=== PATIENT | male | born 1985 | race African-American/Black ===

== ENCOUNTER 2016-07-25 09:54 | Emergency (ER) | payer OTHER ==
[2016-07-25 10:09] VITALS: BP 144/76; PULSE 75; TEMP 97.8; BMI 25.3
--- NOTE | 2016-07-25 12:00 | PDOC ---
History of Present Illness - General Chief Complaint: Head/Neck problem Stated Complaint: HEADACHE Time Seen by Provider: 07/25/16 10:15 History Source: Patient Exam Limitations: No Limitations - History of Present Illness Initial Comments: 07/25/16 12:14 Chief complaint tension back of head and left posterior neck History of present illness: Patient is a 31-year-old male with a history of LVF patient is here today complaining of a tension back of head and left posterior neck intermittent for one week. Patient reports that it was not actually a pain just at tension sensation this pain does not wake him up from any sleep. Patient was noted in exam room playing a video game on his phone with his head tilted downward. Patient admits that he does this often. Patient denies any dizziness, any shortness of breath or any chest pain. 07/25/16 12:17 07/25/16 12:37 Timing/Duration: 1 week, intermittent Severity: mild Associated Symptoms: reports: other (tension sensation back on head, left lateral posterior neck ). denies: fever/chills, headaches, loss of appetite, malaise, nausea/vomiting, seizure, shortness of breath, syncope, weakness Past History - Past Medical History Allergies/Adverse Reactions: Allergies Allergy/AdvReac Type Severity Reaction Status Date / Time No Known Allergies Allergy Verified 07/25/16 10:05 Home Medications: Ambulatory Orders Metoprolol Succinate [Toprol XL -] 25 mg PO BID 04/21/16 Cyclobenzaprine HCl [Flexeril -] 10 mg PO Q8H PRN #21 tablet 07/25/16 Anemia: No Asthma: No Cancer: No Cardiac Disorders: Yes (Mild cardiomegaly) CVA: No COPD: No CHF: No Dementia: No Diabetes: No GI Disorders: No Disorders: No HTN: No Hypercholesterolemia: No Liver Disease: No Psychiatric Problems: Yes (ANXIETY) Seizures: No Thyroid Disease: No - Surgical History Abdominal Surgery: Yes (Left abdominal hernia repair) Orthopedic Surgery: Yes (ACL RT KNEE 2003) - Psycho/Social/Smoking Cessation Hx Anxiety: Yes Suicidal Ideation: No Smoking Status: No Smoking History: Never smoked Number of Cigarettes Smoked Daily: 0 Hx Alcohol Use: No Drug/Substance Use Hx: No Substance Use Type: None Hx Substance Use Treatment: No Review of Systems - Review of Systems Able to Perform ROS?: Yes Constitutional: No: Symptoms Reported HEENTM: No: Symptoms Reported Respiratory: No: Symptoms reported Cardiac (ROS): No: Symptoms Reported ABD/GI: No: Symptoms Reported : No: Symptoms Reported Musculoskeletal: Yes: Neck Pain (left posterior neck) Neurological: Yes: Other (tension sensation lower occipital ). No: Headache, Numbness, Paresthesia, Tingling, Weakness, Unsteady Gait, Ataxia, Dizziness *Physical Exam - Vital Signs Last Vital Signs Temp Pulse Resp BP Pulse Ox 97.8 F 75 19 144/76 99 07/25/16 10:05 07/25/16 10:05 07/25/16 10:05 07/25/16 10:05 07/25/16 10:05 - Physical Exam General Appearance: Yes: Appropriately Dressed HEENT: positive: EOMI, ANURADHA, Normal ENT Inspection Neck: positive: Tender lateral (posterior left neck ). negative: Tender, Lymphadenopathy (R), Lymphadenopathy (L), Rigidity, Tender midline Respiratory/Chest: positive: Lungs Clear, Normal Breath Sounds. negative: Chest Tender, Respiratory Distress Cardiovascular: positive: Regular Rhythm, Regular Rate, S1, S2 Neurologic: positive: hat cutter II-XII NML intact, Alert, Normal Response, Responsive , Finger to Nose. negative: Numbness, Sensory Deficit Heart Score/ECG Review - ECG Impressions Comment:: 07/25/16 12:[address] Sutton ED Treatment Course - LABORATORY CBC & Chemistry Diagram: 07/25/16 12:30 07/25/16 12:30 Medical Decision Making - Medical Decision Making 07/25/16 12:37 07/25/16 12:38 Patient is a 31-year-old male with a history of LVF and HCM patient is here today complaining of a tension back of head and left posterior neck intermittent for one week. Patient reports that it was not actually a pain just at tension sensation this pain does not wake him up from any sleep. Patient was noted in exam room playing a video game on his phone with his head tilted downward. Patient admits that he does this often. Patient denies any dizziness, any shortness of breath or any chest pain. Also reports that he's had low potassium levels in the past would like to have this checked has been tired lately. tension like headache, left posterior neck pain PLAN: EKG reviewed by Dr. Sutton unchanged from 01/26 ibuprofen 600 mg po now flexeril 10 mg po now than every 8 hrs prn muscle spasm CBC with diff BMP 07/25/16 13:24 Laboratory Tests 07/25/16 07/25/16 12:30 12:30 WBC 4.4 D RBC 5.72 H Hgb 16.0 Hct 47.1 MCV 82.3 MCHC 33.9 RDW 13.7 Plt Count 181 MPV 8.9 Neutrophils % 56.8 Lymphocytes % 35.8 Monocytes % 6.5 Eosinophils % 0.4 Basophils % 0.5 Sodium 140 Potassium 4.4 Chloride 102 Carbon Dioxide 30 Anion Gap 8 BUN 8 D Creatinine 0.9 Random Glucose 83 Calcium 9.5 *DC/Admit/Observation/Transfer Diagnosis at time of Disposition: Tension headache Strain of neck Qualifiers: Encounter type: initial encounter Qualified Code(s): S16.1XXA - Strain of muscle, fascia and tendon at neck level, initial encounter - Discharge Dispostion Disposition: HOME Condition at time of disposition: Stable - Patient Instructions Additional Instructions: Follow-up with your primary care provider within the next few days Avoid looking down and playing video games on your phone hold it out in front of you dressing on something Return to emergency room if symptoms worsen or new symptoms develop 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
[2016-07-25] MEDS ORDERED: CYCLOBENZAPRINE HCL 10 MG TABLET (FP) PO ONE (12:36)
[2016-07-25] MEDS ORDERED: IBUPROFEN 600 MG TABLET (FP) PO ONE ×2 (12:37→12:42)
[2016-07-25] MEDS ORDERED: CYCLOBENZAPRINE HCL 10 MG TABLET (FP) ONE (12:42)
[2016-07-25 12:55] LABS: BASOPHIL 0.5 % (0-2.0); EOSINOPHIL 0.4 % (0-4.5); MCH 27.9 pg (25.7-33.7); MCHC 33.9 g/dl (32.0-35.9); MEAN CELL VOLUME 82.3 fl (80-96); MEAN PLT VOLUME 8.9 fl (7.5-11.1); NEUTROPHILS 56.8 % (42.8-82.8); PLATELET COUNT 181 K/MM3 (134-434); RDW 13.7 % (11.9-15.9); WHITE BLOOD COUNT 4.4 K/mm3 (4.0-10.0)
[2016-07-25 13:19] LABS: CALCIUM 9.5 mg/dL (8.5-10.1); CREATININE 0.9 mg/dL (0.7-1.3)
== END 2016-07-25 13:38 | disposition home or self-care (01) ==
LOC: JERFT 09:54
DX: G44.209 Tension-type headache, unspecified, not intractable (principal); S16.1XXA Strain of muscle, fascia and tendon at neck level, initial encounter; X50.1XXA Overexertion from prolonged static or awkward postures, initial encounter; Y93.C2 Activity, hand held interactive electronic device; Y92.89 Other specified places as the place of occurrence of the external cause
CPT/HCPCS: 36415; 80048; 85025; 99281-25

== ENCOUNTER 2016-11-07 18:43 | Emergency (ER) | payer OTHER ==
[2016-11-07 18:48] VITALS: BP 122/80; PULSE 80; TEMP 98.1; BMI 25.6
--- NOTE | 2016-11-07 18:57 | PDOC ---
History of Present Illness - General Chief Complaint: Cold Symptoms Stated Complaint: COUGH STREP THROAT Time Seen by Provider: 11/07/16 18:53 History Source: Patient Exam Limitations: No Limitations - History of Present Illness Initial Comments: 11/07/16 18:54 Patient is a 31-year-old male history of cardiomyopathy presents emergency department with sore throat, cough, diagnosed with strep throat. Allergies: No known allergies Medications: Metoprolol Family History: Non-contributory Social History: Denies smoking, alcohol use, or IVDU Review of Systems GENERAL/CONSTITUTIONAL: No fever or chills. No weakness. No weight change. HEAD, EYES, EARS, NOSE AND THROAT: No change in vision. No ear pain or discharge. Sore throat CARDIOVASCULAR: No chest pain or shortness of breath. RESPIRATORY: Nonproductive cough, wheezing, or hemoptysis. GASTROINTESTINAL: No nausea, vomiting, diarrhea or constipation. No rectal bleeding. GENITOURINARY: No dysuria, frequency, or change in urination. MUSCULOSKELETAL: No joint or muscle swelling or pain. No neck or back pain. SKIN AND BREASTS: No rash or easy bruising. NEUROLOGIC: No headache, vertigo, loss of consciousness, or loss of sensation. PSYCHIATRIC: No depression or anxiety. ENDOCRINE: No increased thirst. No abnormal weight change. HEMATOLOGIC/LYMPHATIC: No anemia, easy bleeding, or history of blood clots. ALLERGIC/IMMUNOLOGIC: No hives or skin allergy. No latex allergy. Physical Exam: GENERAL: The patient is awake, alert, and fully oriented, in no acute distress. EYES: Pupils equal, round and reactive to light, extraocular movements intact, sclera anicteric, conjunctiva clear. ENT: Ears normal, nares patent, oropharynx erythematous without exudates. Moist mucous membranes. No uvula deviation NECK: Normal range of motion, supple without lymphadenopathy, JVD, or masses. LUNGS: Breath sounds equal, clear to auscultation bilaterally. No wheezes, and no crackles. HEART: Regular rate and rhythm, normal S1 and S2 without murmur, rub or gallop. ABDOMEN: Soft, nontender, normoactive bowel sounds. No guarding, no rebound. No masses. No bruising or abrasions MUSCULOSKELETAL: Normal range of motion, no edema. No clubbing or cyanosis. No cords, erythema, or tenderness. No CVA Tenderness with fist palpation. NEUROLOGICAL: Cranial nerves II through XII grossly intact. Normal speech, normal gait. SKIN: Warm, Dry, normal turgor, no rashes or lesions noted. 11/07/16 19:19 Past History - Past Medical History Allergies/Adverse Reactions: Allergies Allergy/AdvReac Type Severity Reaction Status Date / Time No Known Allergies Allergy Verified 11/07/16 18:44 Home Medications: Ambulatory Orders Metoprolol Succinate [Toprol XL -] 25 mg PO BID 04/21/16 Amoxicillin - [Amoxicillin 500mg Capsule -] 500 mg PO BID #20 capsule 11/07/16 Anemia: No Asthma: No Cancer: No Cardiac Disorders: Yes (Mild cardiomegaly) CVA: No COPD: No CHF: No Dementia: No Diabetes: No GI Disorders: No Disorders: No HTN: No Hypercholesterolemia: No Liver Disease: No Psychiatric Problems: Yes (ANXIETY) Seizures: No Thyroid Disease: No - Surgical History Abdominal Surgery: Yes (Left abdominal hernia repair) Orthopedic Surgery: Yes (ACL RT KNEE 2002) - Psycho/Social/Smoking Cessation Hx Anxiety: Yes Suicidal Ideation: No Smoking Status: No Smoking History: Never smoked Have you smoked in the past 12 months: No Number of Cigarettes Smoked Daily: 0 Information on smoking cessation initiated: No Hx Alcohol Use: No Drug/Substance Use Hx: No Substance Use Type: None Hx Substance Use Treatment: No *Physical Exam - Vital Signs Last Vital Signs Temp Pulse Resp BP Pulse Ox 98.1 F 80 18 122/80 100 11/07/16 18:45 11/07/16 18:45 11/07/16 18:45 11/07/16 18:45 11/07/16 18:45 Medical Decision Making - Medical Decision Making 11/07/16 19:21 A/P: Patient with clinical signs of strep pharyngitis and exposure to. Will DC patient on amoxicillin, Motrin for pain. Change toothbrush in 3 days, follow up as needed. 11/07/16 19:27 *DC/Admit/Observation/Transfer Diagnosis at time of Disposition: Exposure to strep throat - Discharge Dispostion Admit: No - Prescriptions Prescriptions: Amoxicillin - [Amoxicillin 500mg Capsule -] 500 mg PO BID #20 capsule - Referrals Referrals: STAFF,NOT ON [Primary Care Provider] - - Patient Instructions Printed Discharge Instructions: DI for Strep Throat Additional Instructions: 1. Increase fluid. 2. Pedialyte or Gatorade. 3. Please change toothbrush within 3 days of starting antibiotics. 4. Warm saltwater gargles. 5. Please follow up with PMD in 3 days if symptoms not resolving. 6. Please return to the ER unable to drink or eat, increased fever or other concerns
== END 2016-11-07 19:29 | disposition home or self-care (01) ==
LOC: JERFT 18:43
DX: J02.0 Streptococcal pharyngitis (principal)
CPT/HCPCS: 99281-25

== ENCOUNTER 2016-11-19 17:38 | Emergency (ER) | payer OTHER ==
[2016-11-19 17:46] VITALS: BP 123/81; PULSE 64; TEMP 98; BMI 25.6
[2016-11-19] MEDS ORDERED: guaiFENesin/CODEINE 10 ML UNIT-DOSE CUPS PO ONE (19:21)
--- NOTE | 2016-11-19 19:24 | PDOC ---
History of Present Illness - General Chief Complaint: Cold Symptoms Stated Complaint: COUGH Time Seen by Provider: 11/19/16 18:57 History Source: Patient Exam Limitations: No Limitations - History of Present Illness Initial Comments: 11/19/16 19:20 31 y/o male presents to the ED with c/o dry hacking cough for the past 2 days without fever, difficulty breathing, sore throat , or headache. Pt states had strep throat last week and was treated with resolution of symptoms. Pt denies chest pain , smoking hx, recent travel, nasal congestion, or seasonal allergies Timing/Duration: reports: other (2 days) Severity: reports: mild Possible Cause: Yes: frequent episodes Modifying Factors: improves with: coughing Associated Symptoms: reports: cough Past History - Past Medical History Allergies/Adverse Reactions: Allergies Allergy/AdvReac Type Severity Reaction Status Date / Time No Known Allergies Allergy Verified 11/19/16 17:44 Home Medications: Ambulatory Orders Metoprolol Succinate [Toprol XL -] 25 mg PO BID 04/21/16 Guaifenesin AC [Robitussin AC] 10 ml PO HS PRN #70 ml MDD 10 11/19/16 Anemia: No Asthma: No Cancer: No Cardiac Disorders: Yes (Mild cardiomegaly) CVA: No COPD: No CHF: No Dementia: No Diabetes: No GI Disorders: No Disorders: No HTN: No Hypercholesterolemia: No Liver Disease: No Psychiatric Problems: Yes (ANXIETY) Seizures: No Thyroid Disease: No - Surgical History Abdominal Surgery: Yes (Left abdominal hernia repair) Orthopedic Surgery: Yes (ACL RT KNEE 2002) - Psycho/Social/Smoking Cessation Hx Anxiety: Yes Suicidal Ideation: No Smoking Status: No Smoking History: Never smoked Have you smoked in the past 12 months: No Number of Cigarettes Smoked Daily: 0 Hx Alcohol Use: No Drug/Substance Use Hx: No Substance Use Type: None Hx Substance Use Treatment: No Patient Lives Alone: No Lives with/in: spouse/SO Review of Systems - Review of Systems Able to Perform ROS?: Yes Constitutional: No: Symptoms Reported HEENTM: No: Symptoms Reported Respiratory: Yes: Cough. No: Shortness of Breath, Wheezing Cardiac (ROS): No: Symptoms Reported ABD/GI: No: Symptoms Reported : No: Symptoms Reported Musculoskeletal: No: Symptoms Reported Integumentary: No: Symptoms Reported Endocrine: No: Symptoms Reported Hematologic/Lymphatic: No: Symptoms Reported *Physical Exam - Vital Signs Last Vital Signs Temp Pulse Resp BP Pulse Ox 98.0 F 64 18 123/81 99 11/19/16 17:43 11/19/16 17:43 11/19/16 17:43 11/19/16 17:43 11/19/16 17:43 - Physical Exam General Appearance: Yes: Nourished, Appropriately Dressed. No: Apparent Distress HEENT: positive: TMs Normal, Pharynx Normal. negative: Pale Conjunctivae Neck: positive: Supple Respiratory/Chest: positive: Lungs Clear, Normal Breath Sounds. negative: Respiratory Distress, Accessory Muscle Use Cardiovascular: positive: Regular Rhythm, Regular Rate. negative: Murmur Gastrointestinal/Abdominal: positive: Soft. negative: Tenderness Integumentary: positive: Normal Color, Warm, Moist Neurologic: positive: Motor Strength 5/5 (ambulatory) Medical Decision Making - Medical Decision Making 11/19/16 19:22 Patient with dry hacking cough for the past 2 days without fever, chills or throat or shortness of breath. Patient exam had no acute findings. Patient we order for Robitussin here in the ER and discharged home with the same. *DC/Admit/Observation/Transfer Diagnosis at time of Disposition: Cough - Discharge Dispostion Disposition: HOME Condition at time of disposition: Good - Prescriptions Prescriptions: Guaifenesin AC [Robitussin AC] 10 ml PO HS PRN #70 ml MDD 10 PRN Reason: Cough - Patient Instructions Printed Discharge Instructions: DI for Cough -- Adult Additional Instructions: Please take Robitussin with codeine at night and do not operate any heavy machinery while taking this. Please drink plenty of fluids and use throat lozenges during the day. Please follow up with your PCP as needed otherwise return to ED if symptoms worsen.
[2016-11-19] MEDS ORDERED: guaiFENesin/CODEINE 5 ML UNIT-DOSE CUPS PO ONE ×2 (19:26→19:30)
== END 2016-11-19 19:33 | disposition home or self-care (01) ==
LOC: JERFT 17:38
DX: R05 Cough (principal); F41.9 Anxiety disorder, unspecified; I51.7 Cardiomegaly
CPT/HCPCS: 99281-25

== ENCOUNTER 2017-01-30 20:39 | Emergency (ER) | payer OTHER ==
[2017-01-30 20:46] VITALS: BP 146/86; PULSE 76; TEMP 98.2; BMI 25.9
[2017-01-30 21:34] LABS: URINE APPEARANCE SLCLOUDY; URINE BILIRUBIN NEGATIVE (NEGATIVE); URINE BLOOD NEGATIVE (NEGATIVE); URINE COLOR AMBER; URINE GLUCOSE (UA) NEGATIVE (NEGATIVE); URINE KETONE 1+ (NEGATIVE); URINE LEUK ESTERASE NEGATIVE (NEGATIVE); URINE NITRITE NEGATIVE (NEGATIVE); URINE UROBILINOGEN NEGATIVE mg/dL (0.2-1.0)
[2017-01-30 21:45] LABS: URINE PROTEIN 1+ (NEGATIVE)
[2017-01-30 21:46] LABS: URINE BACTERIA RARE /hpf (NONE SEEN); URINE HYALINE CAST 2 /lpf; URINE MUCUS MANY; URINE RBC 4 /hpf (0-3); URINE WBC 1 /hpf (3-5)
[2017-01-30] MEDS ORDERED: SODIUM CHLORIDE 1,000 ML IV STA ×2 (22:02→23:18)
[2017-01-30 22:36] LABS: BASOPHIL 0.5 % (0-2.0); EOSINOPHIL 0.7 % (0-4.5); MCH 27.6 pg (25.7-33.7); MCHC 34.2 g/dl (32.0-35.9); MEAN CELL VOLUME 80.8 fl (80-96); MEAN PLT VOLUME 9.3 fl (7.5-11.1); NEUTROPHILS 52.4 % (42.8-82.8); PLATELET COUNT 225 K/MM3 (134-434); RDW 14.1 % (11.9-15.9); WHITE BLOOD COUNT 7.6 K/mm3 (4.0-10.0)
--- NOTE | 2017-01-30 22:53 | PDOC ---
History of Present Illness - General Chief Complaint: Pain Stated Complaint: STOMACH PAIN Time Seen by Provider: 01/30/17 21:45 History Source: Patient Exam Limitations: No Limitations - History of Present Illness Initial Comments: 01/30/17 22:48 31yo Male patient w/ PmHx: HTN, Left Ventricular Hypertrophy presents to ED c/o chills, malaise, dehydration, and stomach pain. Patient states symptoms began this past Tuesday and has not gotten any better. He denies fever, n/v/d, constipation, back pain, diff breathing, CP, rash, or any other complaints. Associated decrease in appetite, throat pain. Timing/Duration: constant Severity: mild Modifying Factors: worse with: cold therapy, eating, immobilization, medication , movement, rest, other Associated Symptoms: denies: denies symptoms, chest pain, cough, diaphoresis, fever/chills, headaches, loss of appetite, malaise, nausea/vomiting, rash, seizure, shortness of breath, syncope, weakness, other Past History - Travel Traveled outside of the country in the last 30 days: No Close contact w/someone who was outside of country & ill: No - Past Medical History Allergies/Adverse Reactions: Allergies Allergy/AdvReac Type Severity Reaction Status Date / Time No Known Allergies Allergy Verified 01/30/17 20:45 Home Medications: Ambulatory Orders Verapamil HCl [Verapamil ER] 120 mg PO DAILY 01/30/17 Anemia: No Asthma: No Cancer: No Cardiac Disorders: Yes (Mild cardiomegaly) CVA: No COPD: No CHF: No Dementia: No Diabetes: No GI Disorders: No Disorders: No HTN: No Hypercholesterolemia: No Liver Disease: No Psychiatric Problems: Yes (ANXIETY) Seizures: No Thyroid Disease: No - Surgical History Abdominal Surgery: Yes (Left abdominal hernia repair) Orthopedic Surgery: Yes (ACL RT KNEE 2002) - Psycho/Social/Smoking Cessation Hx Anxiety: Yes Suicidal Ideation: No Smoking Status: No Smoking History: Never smoked Have you smoked in the past 12 months: No Number of Cigarettes Smoked Daily: 0 Hx Alcohol Use: No Drug/Substance Use Hx: No Substance Use Type: None Hx Substance Use Treatment: No Review of Systems - Review of Systems Able to Perform ROS?: Yes Is the patient limited Serbian proficient: No Constitutional: Yes: Chills, Malaise. No: Fever HEENTM: Yes: Throat Pain. No: Difficulty Swallowing, Mouth Swelling Respiratory: No: Cough, Stridor, Wheezing Cardiac (ROS): No: Chest Pain ABD/GI: Yes: Abdominal cramping. No: Constipated, Diarrhea, Nausea, Poor Appetite, Poor Fluid Intake, Vomiting : No: Burning, Dysuria, Hematuria Musculoskeletal: No: Back Pain Integumentary: No: Bruising, Erythema, Pruritus, Rash, Sweating Neurological: No: Headache, Seizure, Tingling, Dizziness All Other Systems: Reviewed and Negative *Physical Exam - Vital Signs Last Vital Signs Temp Pulse Resp BP Pulse Ox 98.2 F 76 18 146/86 98 01/30/17 20:45 01/30/17 20:45 01/30/17 20:45 01/30/17 20:45 01/30/17 20:45 - Physical Exam General Appearance: Yes: Nourished, Appropriately Dressed. No: Apparent Distress, Mild Distress, Moderate Distress, Severe Distress HEENT: positive: EOMI, ANURADHA, Normal ENT Inspection, Normal Voice, Symmetrical, TMs Normal, Pharynx Normal. negative: Pharyngeal Erythema, Tonsillar Exudate, Tonsillar Erythema, Nasal Congestion, Rhinorrhea, TM Bulging, TM Dull, TM Erythema Neck: positive: Trachea midline, Normal Thyroid, Supple. negative: Stridor, Lymphadenopathy (R), Lymphadenopathy (L), Rigidity, Tender lateral, Tender midline Respiratory/Chest: positive: Lungs Clear, Normal Breath Sounds. negative: Chest Tender, Respiratory Distress, Accessory Muscle Use, Labored Respiration, Rapid RR, Crackles, Rales, Stridor, Wheezing Cardiovascular: positive: Regular Rhythm, Regular Rate Gastrointestinal/Abdominal: positive: Normal Bowel Sounds, Soft. negative: Distended, Guarding, Rebound, Tenderness Musculoskeletal: positive: Normal Inspection. negative: CVA Tenderness, Decreased Range of Motion Extremity: positive: Normal Capillary Refill, Normal Inspection, Normal Range of Motion. negative: Pedal Edema, Swelling, Calf Tenderness, Erythema, Inflammation Integumentary: positive: Normal Color, Dry, Warm Neurologic: positive: assembly riveter II-XII NML intact, Fully Oriented, Alert, Normal Mood/ Affect, Normal Response, Motor Strength 5/5 ED Treatment Course - LABORATORY CBC & Chemistry Diagram: 01/30/17 22:22 01/30/17 22:22 - ADDITIONAL ORDERS Additional order review: Laboratory Results 01/30/17 21:20 Urine Color Muriel Urine Appearance Slcloudy Urine pH 5.0 Ur Specific [place] >= 1.030 H Urine Protein 1+ H Urine Glucose (UA) Negative Urine Ketones 1+ H Urine Blood Negative Urine Nitrite Negative Urine Bilirubin Negative Urine Urobilinogen Negative Ur Leukocyte Esterase Negative Urine RBC 4 Urine WBC 1 Ur Epithelial Cells Rare Urine Bacteria Rare Hyaline Casts 2 Urine Mucus Many 01/30/17 22:22 RBC 5.36 MCV 80.8 MCHC 34.2 RDW 14.1 MPV 9.3 Neutrophils % 52.4 Lymphocytes % 35.9 Monocytes % 10.5 H Eosinophils % 0.7 Basophils % 0.5 - RADIOLOGY Radiology Studies Ordered: Category Date Time Status ABDOMEN & PELVIS CT WITH CONTR [CT] Stat CT Scan 01/30/17 22:02 Ordered *DC/Admit/Observation/Transfer Diagnosis at time of Disposition: Gastroenteritis - Discharge Dispostion Disposition: HOME Condition at time of disposition: Improved Admit: No - Patient Instructions Printed Discharge Instructions: DI for Viral Gastroenteritis -- Adult Additional Instructions: Follow up with your primary care provider as needed. Take medications as prescribed. Return if your symptoms get worse, or any concerns for further evaluation. Start with clear diet and advance as tolerated. Clear diet includes : bottled water, Jello, Broth, toast, tea, crackers and advance to regular as you tolerate these foods first. Print Language: HEBREW
[2017-01-30 23:04] LABS: ALBUMIN 4.6 g/dl (3.4-5.0); AMYLASE 58 U/L (25-115); ANION GAP 12 (8-16); BILIRUBIN,TOTAL 2.7 mg/dL (0.2-1.0); CALCIUM 9.7 mg/dL (8.5-10.1); CO2 27 mmol/L (21-32); CREATININE 0.9 mg/dL (0.7-1.3); GLUCOSE,RANDOM 67 mg/dL (74-106); SGOT/AST 46 U/L (15-37); SGPT/ALT 58 U/L (12-78); TOT PROT 7.8 g/dl (6.4-8.2)
[2017-01-30 23:05] LABS: ALK PHOS 78 U/L (45-117)
[2017-01-31] MEDS: AZITHROMYCIN 250 MG TABLET (FP) PO ONE ×2 (00:56→00:57)
[2017-01-31] MEDS: methylPREDNISolone NA SUCC 125 MG/2 ML VIAL IVPB ONE ×2 (00:56→00:57)
== END 2017-01-31 01:01 | disposition home or self-care (01) ==
LOC: JER 20:39
PROC: 3E0337Z Introduction of Electrolytic and Water Balance Substance into Peripheral Vein, Percutaneous Approach (ICD-10-PCS; principal; 2017-01-30)
DX: K52.9 Noninfective gastroenteritis and colitis, unspecified (principal); I11.9 Hypertensive heart disease without heart failure
CPT/HCPCS: 36415; 74177-TC; 80053; 81003; 81015; 82150; 83690; 85025; 87070; 87086; 87430; 96360; 96361; 99282-25

== ENCOUNTER 2018-10-26 11:18 | Emergency (ER) | payer OTHER ==
[2018-10-26 11:32] VITALS: BMI 26.9
--- NOTE | 2018-10-26 13:08 | PDOC ---
History of Present Illness - General Chief Complaint: Chest Pain Stated Complaint: CHEST PAIN Time Seen by Provider: 10/26/18 12:58 - History of Present Illness Initial Comments: 10/26/18 13:21 The patient is a 33 year old male with a PMH of HOCM who presents to the ED c/o a one week h/o chest tightness. Chest tightness is intermittent, lasting 2-3 minutes occuring multiple times daily. No associated shortness of breath, palpitations, lightheadedness. H/o similar pain last year at which time he states he was given Naproxen. Evaluated at Urgent Care on 10/23 and states he had an echocardiogram at our facility last week. Follows with Dr. Herring and is on Verapmil for his HOCM. NKDA Surgical: abdominal hernia repair x2 Social: denies toxic habits PMD: None - will refer to IM resident clinic Cardiology: Dr. Herring Past History - Past Medical History Allergies/Adverse Reactions: Allergies Allergy/AdvReac Type Severity Reaction Status Date / Time No Known Allergies Allergy Verified 04/16/17 03:03 Home Medications: Ambulatory Orders Verapamil HCl [Verapamil ER] 120 mg PO DAILY 01/30/17 Anemia: No Asthma: No Cancer: No Cardiac Disorders: Yes (Mild cardiomegaly) CVA: No COPD: No CHF: No Dementia: No Diabetes: No GI Disorders: No Disorders: No HTN: Yes Hypercholesterolemia: No Liver Disease: No Psychiatric Problems: Yes (ANXIETY) Seizures: No Thyroid Disease: No - Surgical History Abdominal Surgery: Yes (Left abdominal hernia repair) Orthopedic Surgery: Yes (ACL RT KNEE 2002) - Immunization History Immunization Up to Date: Yes - Suicide/Smoking/Psychosocial Hx Smoking Status: No Smoking History: Never smoked Have you smoked in the past 12 months: No Number of Cigarettes Smoked Daily: 0 Information on smoking cessation initiated: No Hx Alcohol Use: No Drug/Substance Use Hx: No Substance Use Type: None Hx Substance Use Treatment: No Review of Systems - Review of Systems Constitutional: No: Chills, Fever HEENTM: No: Blurred Vision, Recent change in vision Respiratory: No: Cough, Shortness of Breath, Wheezing Cardiac (ROS): Yes: Other (chest discomfort). No: Lightheadedness, Palpitations , Syncope ABD/GI: No: Constipated, Diarrhea, Nausea, Vomiting *Physical Exam - Vital Signs Last Vital Signs Temp Pulse Resp BP Pulse Ox 97.7 F 74 18 125/80 98 10/26/18 11:28 10/26/18 11:28 10/26/18 11:28 10/26/18 11:28 10/26/18 11:28 - Physical Exam General Appearance: Yes: Nourished, Appropriately Dressed HEENT: positive: Normal Voice, Hearing Grossly Normal Neck: positive: Trachea midline, Supple Respiratory/Chest: positive: Lungs Clear, Normal Breath Sounds. negative: Crackles, Wheezing Cardiovascular: positive: S1, S2. 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 VS unremarkable. Will r/o ACS, also consider costochondritis, MSK, esophageal spasm, GERD. Consider, but less likely PE given patient's age and lack of RF. - Troponin, EKG, CXR, CBC/CMP 10/26/18 15:03 Troponin (-) EKG shows changes c/w HOCM as documented in EKG section of EMR Patient had 2-3 minutes of chest discomfort in the ED, symptomatically improved , however, with NSAID CXR shows no cardiomegaly, infiltrate/consolidation 10/26/18 15:40 Case d/w Dr. Perez (Cardiology) - agrees w/discharge home and outpatient cardiology follow-up Patient counseled on plan of care and comfortable with discharge home. Clinical Impression: Chest discomfort - likely of a muskoskeletal etiology I discussed the physical exam findings, ancillary test results and final diagnoses with the patient. I answered all of the patient's questions. The patient was satisfied with the care received and felt comfortable with the discharge plan and treatment plan. The patient will return to the Emergency Department with any new, persistent or worsening symptoms. *DC/Admit/Observation/Transfer Diagnosis at time of Disposition: Chest discomfort - Discharge Dispostion Disposition: HOME Condition at time of disposition: Good Decision to Admit order: No - Referrals Referrals: Rene Herring MD [Staff Physician] - [facility] [place] [Provider Group] - Patient Instructions Printed Discharge Instructions: DI for Atypical Chest Pain Additional Instructions: You were evaluated today for your chest discomfort. All of your labs, an EKG and a chest x-ray showed no concerning findings. At this time you are safe for discharge home. Please call your shingle sawyer's office tomorrow and make an appointment for evaluation next week. Please also call to make an appointment with a primary care (referral provided or you can call your insurance company for a list of doctors). Your care is not complete until you are evaluated by your shingle sawyer and a primary care doctor. You can take Tylenol (up to 4000 mg daily) alternating with Motrin (up to 3200 mg daily) every 4-6 hours up to one 1 week for your pain. Return to the Emergency Department for any new/worsening/concerning symptoms. - Post Discharge Activity
[2018-10-26] MEDS ORDERED: NAPROXEN 500 MG TABLET (FP) PO ONE (13:36)
--- NOTE | 2018-10-26 13:59 | PDOC ---
Documentation entered by Veda Freedman SCRIBE, acting as scribe for Clinton Woods MD. Clinton Wodos MD: This documentation has been prepared by the Tano choi Nirvannie, SCRIBE, under my direction and personally reviewed by me in its entirety. I confirm that the documentation accurately reflects all work, treatment, procedures, and medical decision making performed by me. Attending Attestation - Resident Resident Name: Sandra Moe - ED Attending Attestation I have performed the following: I have examined & evaluated the patient, The case was reviewed & discussed with the resident, I agree w/resident's findings & plan, Exceptions are as noted - HPI HPI: 10/26/18 13:41 The patient is a 33 year old male, with a significant past medical history of HOCM and HTN, who presents to the emergency department with 1 week of intermittent left sided chest discomfort. He states that it comes on randomly, with no known triggering factors. It is not exertional, not pleuritic. The episodes typically last 2-3 minutes before resolving spontaneously. He denies any palpitations or shortness of breath. He denies any recent fevers, chills, headache or dizziness. He denies any recent nausea, vomit, diarrhea or constipation. He denies any recent dysuria, frequency, urgency or hematuria. Allergies: NKDA Past surgical history: abdominal hernia repair (x2) Social History: Nonsmoker. Denies EtOH use and recreational drug use. Pathology Assistant: Dr. Herring - Physicial Exam PE: 10/26/18 13:42 GENERAL: Awake, alert, and fully oriented, in no acute distress. HEAD: No signs of trauma EYES: PERRLA, EOMI, sclera anicteric, conjunctiva clear ENT: Auricles normal inspection, hearing grossly normal, nares patent, oropharynx clear without exudates. Moist mucosa NECK: Nontender, no stepoffs, Normal ROM, supple, no lymphadenopathy, JVD, or masses LUNGS: Breath sounds equal, clear to auscultation bilaterally. No wheezes, and no crackles HEART: Regular rate and rhythm, normal S1 and S2, no murmurs, rubs or gallops ABDOMEN: Soft, nontender, normoactive bowel sounds. No guarding, no rebound. No masses EXTREMITIES: Normal range of motion, no edema. No clubbing or cyanosis. No cords, erythema, or tenderness NEUROLOGICAL: Cranial nerves II through XII intact. 5/5 strength and sensation in all extremities, Normal speech, normal gait, normal cerebellar function SKIN: Warm, Dry, normal turgor, no rashes or lesions noted. - Medical Decision Making 10/26/18 13:58 33 M with intermittent L sided chest pain. EKG with no new ischemic changes. Will r/o ACS. Pt with no PE risk factors. - labs, trop - CXR - Discuss with Dr. Herring, pt's account associate 10/26/18 15:29 Labs wnl, trop negative Case discussed with Dr. Perez, covering for Dr. Herring. Recommends f/u as outpt. Pt is well appearing, with normal vitals. Clinically stable for DC at this time. I discussed the physical exam findings, ancillary test results and final diagnoses with the patient. I answered all of the patient's questions. The patient was satisfied with the care received and felt comfortable with the discharge plan and treatment plan. The patient agrees to follow up with the primary care physician within 24-72 hours.
[2018-10-26] MEDS ORDERED: NAPROXEN 500 MG TABLET (FP) ONE (14:04)
[2018-10-26 14:20] LABS: BASO % 0.7 % (0-2.0); EOS % 0.3 % (0-4.5); HEMATOCRIT 47.4 % (35.4-49); HEMOGLOBIN 15.9 GM/dL (11.7-16.9); LYMPH % 36.3 % (8-40); MCH 27.5 pg (25.7-33.7); MCHC 33.6 g/dl (32.0-35.9); MEAN CELL VOLUME 82.1 fl (80-96); MEAN PLT VOLUME 9.4 fl (7.5-11.1); MONO % 6.7 % (3.8-10.2); PLATELET COUNT 224 K/MM3 (134-434); RBC 5.78 M/mm3 (4.00-5.60); RDW 14.4 % (11.9-15.9); WHITE BLOOD COUNT 4.7 K/mm3 (4.0-10.0)
[2018-10-26 14:31] LABS: ALBUMIN 4.4 g/dl (3.4-5.0); ALK PHOS 79 U/L (45-117); ANION GAP 5 MMOL/L (8-16); BILIRUBIN,TOTAL 1.1 mg/dL (0.2-1); BLOOD UREA NITROGEN 10 mg/dL (7-18); CALCIUM 9.8 mg/dL (8.5-10.1); CHLORIDE 104 mmol/L (98-107); CO2 29 mmol/L (21-32); CREATININE 0.9 mg/dL (0.55-1.3); GLUCOSE,RANDOM 69 mg/dL (74-106); N-TERMINAL BNP 59.7 pg/ml (5-125); POTASSIUM 4.5 mmol/L (3.5-5.1); SGOT/AST 35 U/L (15-37); SGPT/ALT 53 U/L (13-61); SODIUM 138 mmol/L (136-145); TOT PROT 7.5 g/dl (6.4-8.2)
[2018-10-26 15:47] VITALS: BP 133/79; PULSE 85; TEMP 98
--- NOTE | 2018-10-26 16:01 | EKG ---
Test Reason : Blood Pressure : / mmHG Vent. Rate : 064 BPM Atrial Rate : 064 BPM P-R Int : 148 ms QRS Dur : 094 ms QT Int : 424 ms P-R-T Axes : 052 056 176 degrees QTc Int : 437 ms NORMAL SINUS RHYTHM POSSIBLE LEFT ATRIAL ENLARGEMENT ABNORMAL ECG WHEN COMPARED WITH ECG OF 16-APR-2017 03:18, ST NOW DEPRESSED IN ANTERIOR LEADS Confirmed by JV LAW, BOOM ([id number]) on 10/26/2018 4:01:30 PM Referred By: Confirmed By:BOOM CARIAS MD
== END 2018-10-26 15:40 | disposition home or self-care (01) ==
LOC: JER 11:18
DX: R07.89 Other chest pain (principal); I10 Essential (primary) hypertension; I42.1 Obstructive hypertrophic cardiomyopathy
CPT/HCPCS: 36415; 71045-TC-FY; 80053; 82550; 82553; 83880; 84484; 85025; 93005; 93010; 99284-25

== ENCOUNTER 2018-11-10 17:55 | Emergency (ER) | payer OTHER | END 2018-11-10 20:28 | disposition home or self-care (01) | LOC: JERFT 17:55 ==